=== PATIENT | female | born 1975 | race Two or more races ===

== ENCOUNTER 2020-09-22 11:30 | Inpatient (IN) | payer OTHER ==
[~2020-09-22] VITALS: Ht 160 cm; Wt 7.0 kg
[2020-10-01] MEDS ORDERED: COLACE100 MG PO (09:33)
[2020-10-01] MEDS ORDERED: ACETAMINOPHEN-1 EAC2 PO (09:33)
[2020-10-01] MEDS ORDERED: SIMETHICONE125 M1 PO (09:33)
[2020-10-01] MEDS ORDERED: KETO10TA2 PO (09:33)
== END 2020-10-01 11:47 | disposition home or self-care (01) | DRG 743 ==
LOC: O/R 09-29 06:53 → SURH 09-29 06:53
PROVIDERS: ADMIT Obstetrics & Gynecology; ATTEND Obstetrics & Gynecology
PROC: 0UB77ZZ Excision of Bilateral Fallopian Tubes, Via Natural or Artificial Opening (ICD-10-PCS; 2020-09-29)
PROC: 0UT9FZZ Resection of Uterus, Via Natural or Artificial Opening With Percutaneous Endoscopic Assistance (ICD-10-PCS; principal; 2020-09-29 07:00)
DX: N80.0 Endometriosis of uterus (principal); D25.1 Intramural leiomyoma of uterus; N83.8 Other noninflammatory disorders of ovary, fallopian tube and broad ligament; N72 Inflammatory disease of cervix uteri